=== PATIENT | female | born 1945 | race Caucasian/White ===

== ENCOUNTER 2018-08-26 11:44 | Emergency (ER) | payer MEDICARE, MEDICAID ==
[~2018-08-26] VITALS: Ht 170.2 cm; Wt 63.6 kg
[2018-08-26] MEDS ORDERED: normal saline 1000ML IV soln IVB ONE ×2 (12:10)
[2018-08-26 12:37] LABS: CLARITY,URINE SLIGHTLY CLOUDY (Clear); COLOR,URINE YELLOW (Yellow); GLUCOSE, URINE NEGATIVE (Neg); KETONES,URINE >=80 mg/dl (Neg); LEUKOCYTE ESTERASE ,URINE NEGATIVE (Neg); NITRITES, URINE NEGATIVE (Neg); OCCULT BLOOD,URINE NEGATIVE (Neg); PROTEIN,URINE TRACE mg/dl (Neg); UA COLLECTION TYPE STRAIGHT CATH
[2018-08-26 12:47] LABS: MUCUS STRANDS MODERATE /LPF (Neg); SQUAMOUS EPITHELIAL CELL,UR MANY /LPF (FEW)
[2018-08-26 12:51] LABS: RBC,URINE 0-2 /HPF (0-2); WBC,URINE 0-4 /HPF (0-4)
[2018-08-26 12:52] LABS: BACTERIA,URINE FEW /HPF (Neg); HYALINE CASTS 0-3 /LPF (NEGATIVE)
[2018-08-26 13:22] LABS: BASOPHILS % (AUTO) 0.3 % (0-1); EOSINOPHILS # (AUTO) 0.1 X10'3 (0-0.9); EOSINOPHILS % (AUTO) 0.7 % (0-6); HEMATOCRIT 43.3 % (35.0-45.0); HEMOGLOBIN 14.8 g/dl (12.0-16.0); LYMPHOCYTES # (AUTO) 2.2 X10'3 (1.1-4.8); MEAN CORPUSCULAR HEMOGLOBIN 31.5 PG (27.0-31.0); MEAN CORPUSCULAR HGB CONC 34.2 g/dL (33.0-36.5); MEAN CORPUSCULAR VOLUME 92.1 FL (78-98); MEAN PLATELET VOLUME 10.9 FL (7.4-10.4); MONOCYTES # (AUTO) 1.1 X10'3 (0-0.9); MONOCYTES % (AUTO) 11.6 % (2-12); NEUTROPHILS # (AUTO) 6.5 X10'3 (1.8-7.7); NEUTROPHILS % (AUTO) 65.4 % (42-75); PLATELET COUNT 166 X10'3 (140-440); RED CELL DISTRIBUTION WIDTH 13.7 % (11.5-14.5); WHITE BLOOD COUNT 9.9 X10'3 (4.5-11.0)
[2018-08-26 13:36] LABS: CHLORIDE 109 MMOL/L (99-107); GLUCOSE 114 MG/DL (70-104); INR 1.1 INR; PARTIAL THROMBOPLASTIN TIME 25 SECONDS (22-32); POTASSIUM 4.3 MMOL/L (3.5-5.1); PROTHROMBIN TIME 10.8 SECONDS (9.0-12.0); SODIUM 143 MMOL/L (135-145); TOTAL CARBON DIOXIDE 25.9 MMOL/L (24-32)
[2018-08-26 13:37] LABS: ALANINE AMINOTRANSFERASE 16 U/L (12-78); ALBUMIN 3.5 G/DL (3.4-5.0); ALBUMIN/GLOBULIN RATIO 1.1 (1.1-1.5); ALKALINE PHOSPHATASE 87 IU/L (46-116); ANION GAP 8 (8-16); ASPARTATE AMINO TRANSFERASE 37 U/L (10-37); BILIRUBIN,TOTAL 0.7 MG/DL (0.1-1.0); BLOOD UREA NITROGEN 35 MG/DL (7-18); BUN/CREATININE RATIO 42.7 (6.6-38.0); CALCIUM 9.5 MG/DL (8.5-10.1); CREATININE 0.82 MG/DL (0.40-0.90); TOTAL PROTEIN 6.6 G/DL (6.4-8.2); eGFR 69 ML/MIN
--- NOTE | 2018-08-26 14:23 | NUR ---
called Inderjit, spoke to Jessica [phone] gave report, she will send someone to supervisor picking crew the patient
[2018-08-26 14:57] LABS: LARGE PLATELETS FEW; PLATELET ESTIMATE NORMAL
[2018-08-26 16:01] VITALS: BP 121/56
== END 2018-08-26 16:03 | disposition home or self-care (01) ==
LOC: ER 11:44
DX: R41.82 Altered mental status, unspecified (principal); E86.0 Dehydration; R53.83 Other fatigue; F20.9 Schizophrenia, unspecified
CPT/HCPCS: 36415; 70450; 71045; 80053; 81001; 83605; 84145; 85025; 85610; 85730; 87040; 99284; J7030; P9612